=== PATIENT | female | born 1980 | race Caucasian/White ===

== ENCOUNTER 2016-11-08 17:29 | Emergency (ER) | payer OTHER ==
[~2016-11-08] VITALS: Ht 165.1 cm; Wt 68.3 kg
[~2016-11-08 17:29] MED LIST: FLEXERIL10 MG PO; LODINE300 MG PO; PERCOCET 5/31 TABLET PO; PREDNISONE10 MG PO; TORADOL10 MG PO; ULTRAM50 MG PO; ZOFRAN4 MG PO
[2016-11-08] MEDS ORDERED: ULTRAM50 MG PO (19:02)
[2016-11-08 19:05] VITALS: BP 123/83
== END 2016-11-08 19:23 | disposition home or self-care (01) ==
LOC: EME 17:29 → RME 17:29
DX: S20.212A Contusion of left front wall of thorax, initial encounter (principal); W10.9XXA Fall (on) (from) unspecified stairs and steps, initial encounter
CPT/HCPCS: 71101; 99281; 99284